=== PATIENT | female | born 1940 | race Caucasian/White ===

== ENCOUNTER 2021-09-19 11:18 | Emergency (ER) | payer OTHER ==
[~2021-09-19] VITALS: Ht 152.4 cm; Wt 66.7 kg
[2021-09-19] MEDS ORDERED: IRBESARTAN300 MG PO (11:40)
[2021-09-19] MEDS ORDERED: AMBIEN5 MG PO (11:40)
[2021-09-19] MEDS ORDERED: PROTONIX40 MG PO (20:15)
== END 2021-09-19 20:39 | disposition home or self-care (01) ==
LOC: ER 11:18
DX: K20.90 Esophagitis, unspecified without bleeding (principal); R51.9 Headache, unspecified; I10 Essential (primary) hypertension